=== PATIENT | male | born 1960 | race Caucasian/White ===

== ENCOUNTER 2018-09-27 07:28 | Day surgery (SDC) | payer OTHER ==
[2018-09-25 09:23] LABS: ALANINE AMINOTRANSFERASE 24 U/L (12-78); ALBUMIN 3.6 g/dL (3.4-5.0); ANION GAP 6 mmol/L (5-15); CALCIUM 8.4 mg/dL (8.5-10.1); CHLORIDE 107 mmol/L (98-107); CREATININE 0.99 mg/dL (0.7-1.3)
[2018-09-25 09:25] LABS: ALKALINE PHOSPHATASE 52 U/L (45-117); BILIRUBIN,TOTAL 1.5 mg/dL (0.2-1.0); TOTAL PROTEIN 6.7 g/dL (6.4-8.2)
[~2018-09-27] VITALS: Ht 182.9 cm; Wt 80.0 kg
[~2018-09-27 07:28] MED LIST: CITA40TA5 PO; FENTANYL PF 250 MCG/5ML ONE; LISI-170 PO; MIDAZOLAM 1 MG/ML, 2ML ONE; PANT40TA3 PO; TRAZ-137 PO; ZOLP10TA PO
[2018-09-27] MEDS ORDERED: LACTATED RINGERS 1,000 ML IV SCH (07:44)
[2018-09-27 07:54] VITALS: BP 142/84
[2018-09-27] MEDS ORDERED: BUPIVACAINE/PF 0.5% ONE (08:44)
[2018-09-27] MEDS ORDERED: MORPHINE SULFATE 4 MG/ML, 1ML IVPush PRN (09:00)
[2018-09-27] MEDS ORDERED: hydrALAzine 20 MG/ML, 1ML IV PRN (09:00)
[2018-09-27] MEDS ORDERED: ONDANSETRON 2MG/ML, 2ML IV PRN (09:00)
[2018-09-27] MEDS ORDERED: PROMETHAZINE 25 MG SUPP PR PRN (09:00)
[2018-09-27] MEDS ORDERED: PROMETHAZINE 25 MG/ML, 1ML IV PRN (09:00)
[2018-09-27] MEDS ORDERED: PROMETHAZINE 12.5 MG SUPP PR PRN (09:00)
[2018-09-27] MEDS ORDERED: MEPERIDINE/PF 25MG/0.5ML IVPush PRN (09:00)
[2018-09-27] MEDS ORDERED: LABETALOL 5MG/ML, 20ML IV PRN (09:00)
[2018-09-27] MEDS ORDERED: OXYcodone 5 MG/5 ML ORAL.SOL UDC PO PRN (09:00)
[2018-09-27] MEDS ORDERED: ONDANSETRON ODT 8 MG PO PRN (09:00)
[2018-09-27] MEDS ORDERED: PROMETHAZINE 25 MG/ML, 1ML IM PRN ×2 (09:00)
[2018-09-27] MEDS ORDERED: FENTANYL PF 100 MCG/2ML ONE (09:58)
[2018-09-27] MEDS ORDERED: HYDROmorphone 1 MG/ML, 1ML INJ ONE (09:58)
[2018-09-27] MEDS ORDERED: OXYcodone 5 MG/5 ML ORAL.SOL UDC ONE (09:59)
[2018-09-27] MEDS: FENTANYL PF 100 MCG/2ML IV PRN ×2 (10:04→10:12)
[2018-09-27] MEDS: HYDROmorphone 2 MG/ML, 1ML IVPush PRN ×2 (10:20→10:27)
[2018-09-27] MEDS ORDERED: ROCURONIUM 10MG/ML,5ML ONE (14:41)
[2018-09-27] MEDS ORDERED: PROPOFOL 10 MG/ML, 20ML ONE (14:41)
[2018-09-27] MEDS ORDERED: CEFAZOLIN 1,000 MG ONE (14:41)
== END 2018-09-27 12:00 | disposition home or self-care (01) ==
LOC: OUT 07:28
PROVIDERS: ATTEND Surgery
DX: K43.2 Incisional hernia without obstruction or gangrene (principal); F41.9 Anxiety disorder, unspecified; K21.9 Gastro-esophageal reflux disease without esophagitis; I10 Essential (primary) hypertension; Z98.890 Other specified postprocedural states; Z90.49 Acquired absence of other specified parts of digestive tract; Z72.89 Other problems related to lifestyle; Z88.1 Allergy status to other antibiotic agents
CPT/HCPCS: 36415; 49560; 49568; 80053; 93005; J0690; J1170; J2250; J2704; J3010; J3490; J7120